=== PATIENT | female | born 1990 | race Caucasian/White ===

== ENCOUNTER 2020-04-24 12:41 | Inpatient (IN) | payer BC ==
[~2020-04-24] VITALS: Ht 162.6 cm; Wt 80.9 kg
[2020-04-29] VITALS (10 sets, daily range): BP systolic 112–130; BP diastolic 65–82; PULSE 54–87; TEMP 97.8–98
--- NOTE | 2020-04-29 20:10 | NUR ---
Ambulatory to unit for [employer] induction, accompanied by spouse. Oriented to room, monitor, plan of care. Questions invited, pt states "I'm very nervous" multiple questions answered.
[2020-04-29 21:38] LABS: BASO % 0.1 % (0.0-2.0); EOS # 0.2 (0.0-0.7); EOS % 1.6 % (0-4.0); GRAN # 7.3 (1.4-6.5); GRAN % 74.1 % (42.2-75.2); HEMOGLOBIN 11.6 g/dl (12.5-16.0); LYMPH # 1.6 (1.2-3.4); LYMPH % 15.9 % (20.0-51.0); MEAN CELL VOLUME 95 fl (80.0-100.0); MEAN CORPUSCULAR HEMOGLOBIN 32 pg (27.0-31.0); MEAN CORPUSCULAR HGB CONC 34 g/dl (33.0-37.0); MEAN PLATELET VOLUME 10.1 fl (7.4-10.4); MONO # 0.8 (0.1-0.6); MONO % 7.8 % (1.7-9.3); PLATELET COUNT 263 K/mm3 (130-400); RED BLOOD COUNT 3.59 M/mm3 (4.10-5.30); REDCELL DISTRIBUTION WIDTH-CV 13.2 % (11.5-14.5)
[2020-04-29] MEDS ORDERED: FLONASEALLERGY (22:35)
[2020-04-30] VITALS (77 sets, daily range): BP systolic 92–145; BP diastolic 51–92; PULSE 57–104; TEMP 98–98.9
--- NOTE | 2020-04-30 06:15 | NUR ---
Report from Tara Womack RN and care of patient assumed. RN at bedside to introduce self and review plan of care. Patient denies questions regarding induction. Resting in bed WL. [place] adjusted. Call light in reach and at bedside.
--- NOTE | 2020-04-30 06:15 | NUR ---
[place] adjusted. Contractions palpate mild with good resting tone in between. Patient reports "cramping just feels like menstrual cramps".
--- NOTE | 2020-04-30 08:52 | NUR ---
Dr. Haines at bedside. Vertex presentation confirmed via bedside ultrasound. SVE per provider /-3. Discussing plan of care to continue Pitocin induction. Patient does desire epidural eventally, RN encourages patient to let contractions become more regular and intense prior to epidural to allow for more movement. Orders per Dr. Haines that patient may have epidural prior to AROM around noon today. 0855-Patient up to birthing ball.
--- NOTE | 2020-04-30 09:25 | NUR ---
Difficulty tracing contractions due to maternal movement and position. RN palpates abdomen, see documentation. Patient reports contractions are getting more uncomfortable.
--- NOTE | 2020-04-30 10:10 | NUR ---
Dr. Pryor remains on unit, reviews FHR strip. Orders to take off EFM and discharge home with early labor instructions. Reviewed instructions and kick counts with patient, agrees and denies questions.
--- NOTE | 2020-04-30 10:30 | NUR ---
Patient to bathroom then back to birthing ball. Continued difficulty tracing contractions as patient moves frequently through them. RN palpates abdomen, see documentation.
--- NOTE | 2020-04-30 11:20 | NUR ---
Continued difficulty tracing contractions via toco. this RN and Becca Angela RN at bedside palpating abdomen and adjusting toco. [place] monitor replaced.
--- NOTE | 2020-04-30 13:45 | NUR ---
Warren Guerra CRNA at bedside. Patient assisted to sit on edge of bed. 1400- Epidural test dose by Warren Guerra CRNA. Patient tolerates well, see anesthesia record. 1405- Patient repositioned WL followin epidural.
--- NOTE | 2020-04-30 14:12 | NUR ---
Late deceleration noted following SVE. BP noted hypotensive. Patient repositioned LL and Ephedrine given at 1416, see EMAR. BP noted WNL following interventions.
--- NOTE | 2020-04-30 14:40 | NUR ---
Continued difficulty tracing contractions via toco. Multiple RNs at bedside. Palpating abdomen. See documentation.
--- NOTE | 2020-04-30 15:30 | NUR ---
1522- Patient repositioned RL and toco adjusted. Recurrent late decelerations noted following repositioning. 1525- Patient repositioned LL. Dr. Haines notified and requested to view FHR strip. Notified of interventions and continued late decelerations and tachycardia. Orders to decrease Pitocin to 10 mU. Physician will view FHR strip. LR bolus infusing. 1542- Pitocin discontinued. 1543- Oxygen via simple mask at 10L. 1548- SVE /-1. Patient repositioned RL. 1553- Dr. Prieto notified and viewing FHR strip from office. Orders to continue current interventions and physician will continue to monitor from office. Patient updated on plan of care.
--- NOTE | 2020-04-30 17:45 | NUR ---
Dr. Haines at bedside. SVE per provider /-2. Discussing plan of care options with patient. Patient and wish for a few minutes to discuss options. Physician remains on unit.
--- NOTE | 2020-04-30 17:55 | NUR ---
1755- Dr. Haines at bedside. Patient and wish to proceed with section delivery. Denies questions after physician counseling. Patient prepped for surgery.
--- NOTE | 2020-04-30 19:53 | NUR ---
1838 PRIMARY C/SECTION WITH DELIVERY OF FEMALE INFANT, APGARS 8-9-9,
[2020-05-01 04:15] VITALS: BP 134/63; PULSE 54; TEMP 98.2
[2020-05-01 07:00] VITALS: BP 128/76; PULSE 49; TEMP 98.1
[2020-05-01 08:43] LABS: BASO % 0.2 % (0.0-2.0); EOS % 0.1 % (0-4.0); GRAN # 14.9 (1.4-6.5); GRAN % 87.8 % (42.2-75.2); HEMOGLOBIN 11.1 g/dl (12.5-16.0); LYMPH # 1.1 (1.2-3.4); LYMPH % 6.5 % (20.0-51.0); MEAN CELL VOLUME 97 fl (80.0-100.0); MEAN CORPUSCULAR HEMOGLOBIN 33 pg (27.0-31.0); MEAN CORPUSCULAR HGB CONC 34 g/dl (33.0-37.0); MONO # 0.8 (0.1-0.6); MONO % 4.9 % (1.7-9.3); PLATELET COUNT 206 K/mm3 (130-400); RED BLOOD COUNT 3.39 M/mm3 (4.10-5.30); REDCELL DISTRIBUTION WIDTH-CV 13.3 % (11.5-14.5)
--- NOTE | 2020-05-01 09:14 | NUR ---
Initial visit; Parents thanked Organizational Research Consultant for offering God's blessings for the of their daughter. Organizational Research Consultant thanked family for choosing [facility].
[2020-05-01 16:14] VITALS: BP 105/51; PULSE 64; TEMP 98.1
[2020-05-01 21:00] VITALS: BP 113/68; PULSE 71; TEMP 98.2
[2020-05-02 08:06] VITALS: BP 102/68; PULSE 71; TEMP 98.7
[2020-05-02] MEDS ORDERED: PERCOCET 325 MG1 TA2 PO (08:45)
[2020-05-02] MEDS ORDERED: IBU600 MG PO (08:45)
--- NOTE | 2020-05-02 10:58 | NUR ---
Patient given discharge instructions. Denies questions.
== END 2020-05-02 11:09 | disposition home or self-care (01) | DRG 788 ==
LOC: OB → LDR 04-29 20:20 → OB 04-30 06:45
PROVIDERS: ADMIT Obstetrics & Gynecology
PROC: 10D00Z1 Extraction of Products of Conception, Low, Open Approach (ICD-10-PCS; principal; 2020-04-30)
PROC: 3E033VJ Introduction of Other Hormone into Peripheral Vein, Percutaneous Approach (ICD-10-PCS; 2020-04-30)
DX: O48.0 Post-term pregnancy (principal); O99.344 Other mental disorders complicating childbirth; O76 Abnormality in fetal heart rate and rhythm complicating labor and delivery; F41.9 Anxiety disorder, unspecified; J45.909 Unspecified asthma, uncomplicated; O99.52 Diseases of the respiratory system complicating childbirth; Z3A.41 41 weeks gestation of pregnancy; Z37.0 Single live birth; Z86.15 Personal history of latent tuberculosis infection
CPT/HCPCS: J0690; J1100; J1885; J2405; J2590; J7120

== ENCOUNTER → 2020-04-24 | Outpatient (CLI) | payer BC ==
[~2020-04-24] MED LIST: FLONASEALLERGY
== END ==
LOC: ZCOL.LAB 08:00
DX: Z20.828 Contact with and (suspected) exposure to other viral communicable diseases (principal)